=== PATIENT | male | born 1935 | race African-American/Black ===

== ENCOUNTER 2022-02-21 17:22 | Observation (INO) | payer MEDICARE, BC ==
[2022-02-21] MEDS ORDERED: Ondansetron PF 4 MG/2 ML Vial IVP PRN (20:15)
[2022-02-21] MEDS ORDERED: Ondansetron ODT 4 MG TAB SL PRN (20:15)
[2022-02-21] MEDS ORDERED: Acetaminophen 325 MG TAB PO PRN (20:15)
[2022-02-21 20:18] VITALS: BMI 25.8
[2022-02-21] MEDS ORDERED: Atorvastatin Calcium 20 MG TAB PO SCH (21:00)
[2022-02-21] MEDS ORDERED: Dextrose 50% Abboject 50 ML SYRINGE SLOW IVP PRN (21:40)
[2022-02-21] MEDS ORDERED: HumaLOG 300 UNITS/3 ML VIAL SC PRN ×2 (21:40)
[2022-02-21] MEDS ORDERED: Dextrose 5% in Water 1,000 ML IV PRN (21:40)
[2022-02-21] MEDS ORDERED: traZODone HCl 50 MG TAB PO SCH (22:00)
[2022-02-21] MEDS ORDERED: Melatonin 3 MG TAB PO SCH (22:00)
[2022-02-21] MEDS: Pramipexole Di-HCl 0.125 MG TAB PO SCH (22:04)
[2022-02-21 23:25] LABS: Troponin I 0.108 ng/mL (< 0.028)
[2022-02-22 02:13] LABS: SARS-CoV-2 PCR by NAA Not Detected (NotDetected)
[2022-02-22] MEDS: Sodium Chloride 0.9% 1,000 ML IV SCH ×2 (03:16→16:06)
[2022-02-22] MEDS ORDERED: Aripiprazole 2 MG TAB PO SCH (09:00)
[2022-02-22] MEDS ORDERED: Venlafaxine HCl XR 150 MG CAP PO SCH (09:00)
[2022-02-22] MEDS ORDERED: Lithium Carbonate 150 MG CAP PO SCH (09:00)
[2022-02-22] MEDS ORDERED: Aspirin 81 mg Enteric Coated Tablet PO SCH (09:00)
[2022-02-22] MEDS: Pramipexole Di-HCl 0.125 MG TAB PO SCH (09:32)
[2022-02-22] MEDS ORDERED: Amlodipine 5 MG TAB PO SCH (11:45)
[2022-02-22 15:35] VITALS: BP 171/79; TEMP 97.9
[2022-02-22] MEDS ORDERED: Melatonin 3 MG TAB PO SCH (21:00)
[2022-02-22] MEDS ORDERED: traZODone HCl 50 MG TAB PO SCH (21:00)
== END 2022-02-22 17:00 | disposition home or self-care (01) ==
LOC: 2SW 17:22
PROVIDERS: ADMIT Hospitalist; ATTEND Hospitalist
DX: I21.A1 Myocardial infarction type 2 (principal); E11.40 Type 2 diabetes mellitus with diabetic neuropathy, unspecified; F03.90 Unspecified dementia, unspecified severity, without behavioral disturbance, psychotic disturbance, mood disturbance, and anxiety; I10 Essential (primary) hypertension; I25.10 Atherosclerotic heart disease of native coronary artery without angina pectoris; E11.69 Type 2 diabetes mellitus with other specified complication; S91.105A Unspecified open wound of left lesser toe(s) without damage to nail, initial encounter; Z79.82 Long term (current) use of aspirin; Z79.84 Long term (current) use of oral hypoglycemic drugs; Z79.899 Other long term (current) drug therapy; Z88.5 Allergy status to narcotic agent; Z95.0 Presence of cardiac pacemaker; Z20.822 Contact with and (suspected) exposure to COVID-19
CPT/HCPCS: 82962 ×2; 84484; U0003; U0005; 36415; 36416; G0378; J7050